=== PATIENT | female | born 1935 | race African-American/Black ===

== ENCOUNTER 2023-06-28 13:00 | Emergency (ER) | payer OTHER ==
[2023-06-28 13:11] VITALS: BP 156/74; PULSE 83; RESP 17; TEMP 98; BMI 23.8
[2023-06-28] MEDS ORDERED: ACETAMINOPHEN 500 MG TABLET (FP) PO ONE (14:38)
[2023-06-28] MEDS ORDERED: ACETAMINOPHEN 500 MG TABLET (FP) ONE (14:46)
== END 2023-06-28 15:34 | disposition home or self-care (01) ==
LOC: FER 13:00
DX: S09.90XA Unspecified injury of head, initial encounter (principal); R51.9 Headache, unspecified; M25.532 Pain in left wrist; W01.198A Fall on same level from slipping, tripping and stumbling with subsequent striking against other object, initial encounter; Y93.01 Activity, walking, marching and hiking
CPT/HCPCS: 70450-TC; 70486-TC; 72125-TC; 73110-TC-LT-FY; 73130-TC-LT-FY; 99284-25